=== PATIENT | female | born 1975 | race Caucasian/White ===

== ENCOUNTER → 2020-09-17 | Outpatient (CLI) | payer BC ==
--- NOTE | 2020-09-17 07:25 | MR ---
EXAMINATION TYPE: MR knee LT wo con DATE OF EXAM: 09/17/2020 COMPARISON: Outside left knee x-ray August 31, 2020 HISTORY: Left knee pain. Pain for one month since moving injury. TECHNIQUE: Multiplanar, multisequence imaging of the left knee is performed without IV contrast. FINDINGS: MEDIAL MENISCUS: Anterior horn is intact without tear. Increased signal posterior horn medial meniscu s does not definitely extend to articular surface. LATERAL MENISCUS: Anterior and posterior horns are intact without tear. CRUCIATE LIGAMENTS: The posterior cruciate ligament is intact and unremarkable. Anterior cruciate lig ament is abnormal, some intact anterior fibers of low signal remain present, majority is thickened wi th abnormal signal sagittal image 17 for reference COLLATERAL LIGAMENTS: The medial collateral ligament and lateral collateral ligament complex are inta ct and unremarkable. EXTENSOR MECHANISM: Visualized quadriceps and patellar tendons are intact. EFFUSION: No significant suprapatellar joint effusion. POPLITEAL CYST: No popliteal/bailey cyst. TRICOMPARTMENT SPACES: Tricompartment joint spaces are maintained. No significant spurring is seen. CARTILAGE: Tricompartment articular cartilage is preserved. BONE MARROW SIGNAL: No focal abnormal marrow signal is appreciated. OTHER: No additional significant abnormality is appreciated. 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 No full thickness meniscal tear.
== END | disposition home or self-care (01) ==
LOC: RADMRIMAIN 06:12
PROVIDERS: ATTEND Orthopaedic Surgery
DX: M25.562 Pain in left knee (principal)

== ENCOUNTER → 2020-10-28 | Outpatient (CLI) | payer BC ==
[2020-10-28 16:21] LABS: Basophils % (A) 1 %; Eosinophils # (A) 0.2 k/uL (0-0.7); Eosinophils % (A) 3 %; HCT 41.2 % (34.0-46.0); HGB 13.6 gm/dL (11.4-16.0); Lymphocytes # (A) 2.3 k/uL (1.0-4.8); Lymphocytes % (A) 34 %; MCH 30.9 pg (25.0-35.0); MCHC 32.9 g/dL (31.0-37.0); MCV 93.7 fL (80.0-100.0); Mean Platelet Volume 7.6; Monocytes # (A) 0.3 k/uL (0-1.0); Monocytes % (A) 4 %; Neutrophils # (A) 3.9 k/uL (1.3-7.7); Neutrophils % (A) 58 %; Platelet Count 295 k/uL (150-450); RDW 12.6 % (11.5-15.5); WBC 6.8 k/uL (3.8-10.6)
[2020-10-28 16:33] LABS: Calcium 9.3 mg/dL (8.4-10.2); Potassium 4.5 mmol/L (3.5-5.1)
== END | disposition home or self-care (01) ==
LOC: LABPAT 16:01
PROVIDERS: ATTEND Obstetrics & Gynecology
DX: Z01.812 Encounter for preprocedural laboratory examination (principal)
CPT/HCPCS: 36415; 80048; 85025; 86850; 86900; 86901

== ENCOUNTER 2020-11-04 06:00 | Observation (INO) | payer BC, OTHER ==
[2020-11-01 12:42] VITALS: BMI 33.5
--- NOTE | 2020-11-02 17:53 | P.HPOB ---
History of Present Illness H&P Date: 11/02/20 Chief Complaint: Fibroid uterus with dysfunctional uterine bleeding Yuliana is a 45-year-old female with fibroid uterus and a thickened endometrium approximately 1.1 cm to fight despite having a NovaSure ablation 2014. She continues to have pelvic discomfort and bleeding and a hysterectomy has been scheduled to remove her uterus and fallopian tubes she is consented for a biotic-assisted left scopic hysterectomy with bilateral salpingectomy possible LILIBETH and possible BSO risks/benefits/alternatives were discussed with patient in detail all questions were answered for her prior to proceeding to the operative room. Past Medical History Past Medical History: Hypertension, Osteoarthritis (OA) Additional Past Medical History / Comment(s): HEAVY MENSES History of Any Multi-Drug Resistant Organisms: None Reported Past Surgical History: Tubal Ligation, Uterine Ablation Past Anesthesia/Blood Transfusion Reactions: No Reported Reaction Smoking Status: Never smoker - Past Family History Mother Family Medical History: No Reported History Medications and Allergies Home Medications Medication Instructions Recorded Confirmed Type Loratadine [Claritin] 10 mg PO DAILY 11/01/20 11/01/20 History Losartan Potassium [Cozaar] 50 mg PO DAILY 11/02/20 11/02/20 History Allergies Allergy/AdvReac Type Severity Reaction Status Date / Time No Known Allergies Allergy Verified 11/01/20 12:38 Exam Osteopathic Statement: *. No significant issues noted on an osteopathic structural exam other than those noted in the History and Physical/Consult. - OBG Physical Exam Breast: both: normal (no masses) Abdomen: bowel sounds normal, no diffuse tenderness, no bruit present, no guarding noted, no hepatomegaly, no splenomegaly, no mass Vulva: both: normal Vagina: normal moisture, no discharge Cervix: no lesion, no discharge Uterus: Fibroid uterus noted Uterus: normal size, normal contour Adnexa: both: normal Anus/Rectum: normal perianal skin, no rectal mass, no hemorrhoids, heme negative
[~2020-11-04 06:00] MED LIST: DEXAMETHASONE SOD PHOSPHATE 4 MG/ML 1 ML VIAL IV ONE; LACTATED RINGERS 1,000 ML IV SCH; LIDOCAINE 1% (10MG/ML) FOR IV START INTRADERMA PRN; ONDANSETRON 4 MG/2 ML VIAL IVP ONE
[2020-11-04] MEDS ORDERED: MIDAZOLAM 2 MG/2 ML VIAL IV ONE (06:55)
[2020-11-04] MEDS ORDERED: fentaNYL (PF) 50 MCG/ML 2 ML AMP IV ONE (06:55)
--- NOTE | 2020-11-04 07:09 | P.ANPRN ---
Procedure Note - Anesthesia - Nerve Block Performed Bilateral Erector Spinae Single Time Out Performed: Yes Date of Procedure: 11/04/20 Procedure Start Time: 06:55 Procedure Stop Time: 07:04 Location of Patient: PreOp Indication: Requested by Surgeon Specifically requested for management of pain by DrDidi: Kirit Willett Sedation Type: Sedate with meaningful contact maintained Preparation: Sterile Prep Position: Prone Catheter: None Needle Types: Pajunk Needle Gauge: 21 Ultrasound used to visualize needle placement: Yes Ultrasound used to observe medication spread: Yes Injectate: 0.5% Ropivacaine (see comment for volume) (15 ml +NS 0.9% 15 ml +Dexamethason 4 mg per side) Blood Aspirated: No Pain Paresthesia on Injection Noted: No Resistance on Injection: Normal Image Stored and Saved: Yes Events: Uneventful and Well Tolerated
[2020-11-04] MEDS ORDERED: DEXAMETHASONE SOD PHOSPHATE 4 MG/ML 1 ML VIAL ONE (07:38)
[2020-11-04] MEDS ORDERED: NEOSTIGMINE 1 MG/ML 10 ML VIAL ONE (07:38)
[2020-11-04] MEDS ORDERED: SODIUM CHLORIDE 0.9% (PF) 10 ML VIAL ONE (07:38)
[2020-11-04] MEDS ORDERED: LIDOCAINE 1% INJ 10MG/ML (20 ML MDV) ONE (07:38)
[2020-11-04] MEDS ORDERED: PROPOFOL 10 MG/ML 20 ML VIAL IV ONE (07:38)
[2020-11-04] MEDS ORDERED: ROPIVACAINE 5 MG/ML 30 ML VIAL ONE (07:38)
[2020-11-04] MEDS ORDERED: SUCCINYLCHOLINE CHLORIDE 100 MG/5 ML SYR IV ONE (07:38)
[2020-11-04] MEDS ORDERED: KETOROLAC 15 MG/ML 1 ML VIAL ONE (07:38)
[2020-11-04] MEDS ORDERED: fentaNYL (PF) 50 MCG/ML 2 ML AMP ONE (07:38)
[2020-11-04] MEDS ORDERED: ROCURONIUM 10 MG/ML (5 ML VIAL) IV ONE (07:38)
[2020-11-04] MEDS ORDERED: GLYCOPYRROLATE 0.2 MG/ML 2 ML VIAL ONE (07:38)
[2020-11-04] MEDS ORDERED: BUPIVACAINE (PF) 0.25% 30 ML VIAL SQ ONE (08:04)
[2020-11-04] MEDS ORDERED: SIMETHICONE 80 MG CHEWABLE PO PRN (09:01)
[2020-11-04] MEDS ORDERED: ONDANSETRON 4 MG/2 ML VIAL IVP PRN (09:01)
[2020-11-04] MEDS ORDERED: HYDROcodone/APAP 5-325MG 1 EACH TAB PO PRN ×2 (09:04)
--- NOTE | 2020-11-04 09:10 | P.OP ---
Date of Procedure: 11/04/20 Preoperative Diagnosis: Pelvic pain and dysfunctional uterine bleeding: Failed NovaSure Postoperative Diagnosis: Same Procedure(s) Performed: Robotic-assisted left scopic hysterectomy with bilateral salpingectomy Anesthesia: MAN Surgeon: Kirit Willett Director Talent Management #1: Alfreda Casper Estimated Blood Loss (ml): 75 IV fluids (ml): 500 Urine output (ml): 150 Pathology: other (Uterus, cervix, fallopian tubes) Condition: stable Disposition: floor Operative Findings: Pathology pending Description of Procedure: Yuliana was taken to the operating suite where a general anesthetic was found be adequate. She was prepped and draped in the normal sterile fashion and placed in dorsal lithotomy position. Initially a weighted speculum was inserted into the vagina and anterior lip of cervix identified grasped with a single-tooth tenaculum. Cervix then sounded 11 cm and cup size measured to 4 with a tip size of 10 Rhona manipulator was then inserted without difficulty with sutures placed at 3 and 9 for assistance in removal. Other incidents were then removed and a Chen catheter was placed. Closer changed and attention was turned to abdominal portion procedure where 3 mL of quarter percent Marcaine was injected approximately 2 cm above the umbilicus as that is approximately 10-12 cm above the point of maximal Ascent of the uterus. 5 mm trocar and sleeve were then inserted under direct visualization with an optical trocar and sleeve and in the abdomen was filled with CO2. Patient was then placed in deep Trendelenburg position approximately 25 and 2 lateral ports were placed 10 cm lateral to the umbilicus and the same line as the umbilicus and a fourth port and sleeve was inserted through a 1 cm incision between the left lateral and the medial ports. All ports were robotic other than the technician assistant port. Once robotic port was placed for the camera port robot was brought in and docked in once fully docked a scissor was placed in the one arm and a [place] grasper in the 2 arm. At this point I broke scrub and went to the console and observations [place] noted. Uterus is noted grossly enlarged with suspected fibroids. It was anteverted and tipped to the right side and the left fallopian tube was excised. Once this was completed utero-ovarian ligament was identified cauterized and transected. Mesosalpinx tissue to the round ligament was then cauterized transected Remley was then cauterized transected and the anterior posterior leafs the broad ligament were developed. Vascular the along the lateral border of the uterus was then cauterized and transected to the level of the bladder flap. Uterus in retroverted and bladder flap was identified it was entered with scissor and undermining with the [place] it was incised across face uterus and then bluntly dissected out of the operative field. Once this was completed similar function was done on the right side of the uterus. At this point with good visualization of the uterus was retroverted and the cup was identified balloon was blown up in the Rhona manipulator and an anterior colpotomy was made. Following the cup in a counterclockwise fashion cheating head as necessary to maintain excellent hemostasis the uterus and cervix were excised. Once 3 and 60 was accomplished uterus was pushed down into the vagina to maintain pneumoperitoneum. Once hemostasis was felt to be completely obtained across the pedicles incidents were exchanged for a cardia grasper and a make suture cut and with to OB lock suture the vaginal cuff was closed. Excellent hemostasis noted at this point pelvis was suction irrigated and then all instruments were removed. Gas allowed to expel from the abdomen and 5 deep breaths were provided. We did decrease in Trendelenburg tubal 7 and a diagnostic cystoscopy was done with excellent flow noted from both ureteral jets and Dr. Casper close the skin incisions subcuticularly with 3-0 Vicryl. The remaining 8 mL her 7 mL of quarter percent Marcaine was then injected around the incisions. Sponge, lap, needle counts were all correct 2. Chen catheter was placed and patient was taken to the recovery room in stable and satisfactory condition.
[2020-11-04] MEDS ORDERED: LACTATED RINGERS 1,000 ML IV ONE (10:06)
[2020-11-04] MEDS: KETOROLAC 15 MG/ML 1 ML VIAL IVP PRN ×2 (15:08→23:45)
[2020-11-05 06:28] LABS: Basophils % (A) 0 %; Eosinophils % (A) 0 %; HCT 38.3 % (34.0-46.0); HGB 12.6 gm/dL (11.4-16.0); Lymphocytes # (A) 2.8 k/uL (1.0-4.8); Lymphocytes % (A) 21 %; MCH 30.8 pg (25.0-35.0); MCHC 32.9 g/dL (31.0-37.0); MCV 93.5 fL (80.0-100.0); Mean Platelet Volume 7.9; Monocytes # (A) 0.8 k/uL (0-1.0); Monocytes % (A) 6 %; Neutrophils # (A) 9.4 k/uL (1.3-7.7); Neutrophils % (A) 71 %; Platelet Count 265 k/uL (150-450); RDW 12.5 % (11.5-15.5); WBC 13.2 k/uL (3.8-10.6)
[2020-11-05 08:38] VITALS: BP 142/91; PULSE 78; RESP 18; TEMP 98.1
--- NOTE | 2020-11-05 09:25 | P.DS ---
Providers Date of admission: 11/04/20 23:56 Expected date of discharge: 11/05/20 Attending physician: Kirit Willett Primary care physician: Angeline Colon Patient Condition at Discharge: Good Plan - Discharge Summary Discharge Rx Participant: No New Discharge Prescriptions: New HYDROcodone/APAP 5-325MG [Sunflower 5-325] 1 tab PO Q4HR PRN #30 tab PRN Reason: Pain Ibuprofen [Motrin] 600 mg PO Q6HR PRN #30 tab PRN Reason: Pain No Action Loratadine [Claritin] 10 mg PO DAILY Losartan Potassium [Cozaar] 50 mg PO DAILY Discharge Medication List Loratadine [Claritin] 10 mg PO DAILY 11/01/20 [History] Losartan Potassium [Cozaar] 50 mg PO DAILY 11/02/20 [History] HYDROcodone/APAP 5-325MG [Sunflower 5-325] 1 tab PO Q4HR PRN #30 tab 11/05/20 [Rx] Ibuprofen [Motrin] 600 mg PO Q6HR PRN #30 tab 11/05/20 [Rx] Follow up Appointment(s)/Referral(s): Kirit Willett DO [Doctor of Osteopathic Medicine] - 1 Week Activity/Diet/Wound Care/Special Instructions: No heavy lifting, limit stairs and driving, and pelvic rest. If any high temperatures, heavy bleeding, or severe pain notify our office. Complete pelvic rest for 6-8 weeks. Discharge Disposition: HOME SELF-CARE
== END 2020-11-05 10:37 | disposition home or self-care (01) ==
LOC: OR 06:00 → 6PED 10:04 → OR 23:56 → 6PED 23:56
PROVIDERS: ADMIT Obstetrics & Gynecology; ATTEND Obstetrics & Gynecology
DX: D25.1 Intramural leiomyoma of uterus (principal); N93.8 Other specified abnormal uterine and vaginal bleeding; N92.0 Excessive and frequent menstruation with regular cycle; I10 Essential (primary) hypertension; K21.9 Gastro-esophageal reflux disease without esophagitis; M19.90 Unspecified osteoarthritis, unspecified site; Z98.51 Tubal ligation status; Z98.890 Other specified postprocedural states; Z79.899 Other long term (current) drug therapy
CPT/HCPCS: 58554; S2900; 64999; 81025; 85025; 86850; 86900; 86901; 88307

== ENCOUNTER → 2023-05-07 | Outpatient (CLI) | payer BC ==
--- NOTE | 2023-05-08 08:56 | MM ---
Reason for Exam: Screening (asymptomatic). Last mammogram was performed 2 year(s) and 10 month(s) ago. Patient History: Menarche at age 11. First Full-Term at age 19. Hysterectomy at age 45. Patient used Hormonal Contraceptives for 3 years. Risk Values: Gardenia 5 year model risk: 0.8%. NCI Lifetime model risk: 8.3%. Prior Study Comparison: 10/19/2014 Bilateral Screening Mammogram, [facility]. 07/14/2020 Bilateral Screening Mammogram, [facility]. Tissue Density: The breast tissue is heterogeneously dense. This may lower the sensitivity of mammography. Findings: Analyzed By CAD. There is no suspicious group of microcalcifications or new suspicious mass in either breast. Benign calcifications. There is an asymmetric density in the retroareolar portion of the left breast upper outer quadrant. Overall Assessment: Incomplete: need additional imaging evaluation, BI-RAD 0 Management: Special View Mammogram of the left breast. . Patient should continue monthly self-breast exams. A clinical breast exam by your physician is recommended on an annual basis. This exam should not preclude additional follow-up of suspicious palpable abnormalities. Note on Gardenia scores and lifetime risk: 1. A Gardenia score greater than 3% is considered moderate risk. If this is the case, consider specialist referral to assess eligibility for a risk reducing agent. 2. If overall lifetime risk for the development of breast cancer is 20% or higher, the patient may qualify for future screening with alternating mammogram and breast MRI. Electronically signed and approved by: Benitez Rebollar M.D. Radiologis
== END | disposition home or self-care (01) ==
LOC: RADMAMWWP 12:36
PROVIDERS: ATTEND Internal Medicine
DX: Z12.31 Encounter for screening mammogram for malignant neoplasm of breast (principal)
CPT/HCPCS: 77067

== ENCOUNTER → 2023-05-09 | Outpatient (CLI) | payer BC ==
--- NOTE | 2023-05-09 15:12 | MM ---
Reason for Exam: Additional evaluation requested from abnormal screening. Last screening mammogram was performed less than 1 month ago. Patient History: Menarche at age 11. First Full-Term at age 19. Hysterectomy at age 45. Patient used Hormonal Contraceptives for 3 years. Risk Values: Gardenia 5 year model risk: 0.8%. NCI Lifetime model risk: 8.3%. Prior Study Comparison: 10/19/2014 Bilateral Screening Mammogram, [facility]. 07/14/2020 Bilateral Screening Mammogram, [facility]. 05/07/2023 Bilateral MG screening mammo w CAD, [facility]. Tissue Density: Left: The breast tissue is heterogeneously dense. This may lower the sensitivity of mammography. Findings: Analyzed By CAD. Area of concern/asymmetry compresses out on spot compression imaging and is felt to be present dating back to 2014 within the left breast anterior depth slightly lateral and slightly superior. No suspicious masses, calcifications or distortions. Overall Assessment: Benign, BI-RAD 2 Management: Screening Mammogram of both breasts in 1 year. Results were given to the patient verbally at the time of exam. Patient should continue monthly self-breast exams. A clinical breast exam by your physician is recommended on an annual basis. This exam should not preclude additional follow-up of suspicious palpable abnormalities. Note on Gardenia scores and lifetime risk: 1. A Gardenia score greater than 3% is considered moderate risk. If this is the case, consider specialist referral to assess eligibility for a risk reducing agent. 2. If overall lifetime risk for the development of breast cancer is 20% or higher, the patient may qualify for future screening with alternating mammogram and breast MRI. Electronically signed and approved by: Camilo Dahl DO
== END | disposition home or self-care (01) ==
LOC: RADMAMWWP 14:41
PROVIDERS: ATTEND Internal Medicine
DX: R92.332 Mammographic heterogeneous density, left breast (principal)
CPT/HCPCS: 77061; 77065